=== PATIENT | male | born 1980 | race Caucasian/White ===

== ENCOUNTER 2018-09-12 15:20 | Emergency (ER) | payer SELFPAY ==
[~2018-09-12] VITALS: Ht 188 cm; Wt 72.6 kg
--- NOTE | 2018-09-12 16:04 | NUR ---
PT A/OX4, PRESENTS TO THE ER C/O L KNEE PAIN. PT REPORTS HE WAS WORKING ON A FILM SET WHEN HE "WALKED INTO A METAL OBJECT" PROTRUDING FROM A VEHICLE. PAIN IS PROVOKED UPON MOVEMENT, ACHING IN QUALITY, DOSE NOT RADIATE, CONSTANT, 6/10. UPON ASSESSMENT, NO DEFORMITY, NO CREPITUS. PT DENIES C/P, SOB, N/V/D, DIZZINESS, HEADACHE.
--- NOTE | 2018-09-12 16:13 | NUR ---
CYDNEY LEGER AT BEDSIDE FOR MSE.
[2018-09-12] MEDS ORDERED: TDAP DIPH,PERTUSS,TET VAC/PF 0.5 ML DISP.SYRIN IM ONE ×2 (16:15→16:16)
--- NOTE | 2018-09-12 16:23 | NUR ---
MONTESSORI PROGRAM DIRECTOR AT BEDSIDE.
--- NOTE | 2018-09-12 17:08 | NUR ---
DPatient discharged to home in stable conditon. Written and verbal after care instructions given. Patient verbalizes understanding of instructions. PT SELF-AMBULATED W/O DIFFICULTY. ALL BELONGINGS W/ PT.
[2018-09-12 17:09] VITALS: BP 112/66
== END 2018-09-12 17:10 | disposition home or self-care (01) ==
LOC: ER 15:25
DX: S80.212A Abrasion, left knee, initial encounter (principal); W22.8XXA Striking against or struck by other objects, initial encounter; Y93.89 Activity, other specified; Y92.89 Other specified places as the place of occurrence of the external cause; Y99.8 Other external cause status
CPT/HCPCS: 90715; A4663